=== PATIENT | male | born 1965 | race Caucasian/White ===

== ENCOUNTER 2020-04-28 20:37 | Emergency (ER) | payer BC ==
[~2020-04-28] VITALS: Ht 182.9 cm; Wt 111.1 kg
[2020-04-28 21:30] VITALS: BP_SYST 128
--- NOTE | 2020-04-28 23:30 | NUR ---
Patient did not want to wait. Patient left without being seen. No further treatment needed. ER MD aware
== END 2020-04-28 23:30 | disposition left against medical advice (07) ==
LOC: SED 20:37
DX: S61.256A Open bite of right little finger without damage to nail, initial encounter (principal); W54.0XXA Bitten by dog, initial encounter; Y93.89 Activity, other specified; Y92.89 Other specified places as the place of occurrence of the external cause; Y99.8 Other external cause status; Z53.21 Procedure and treatment not carried out due to patient leaving prior to being seen by health care provider